=== PATIENT | female | born 2000 | race Caucasian/White ===

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

== ENCOUNTER 2020-03-01 03:10 | Outpatient (CLI) | payer SELFPAY ==
[2020-03-04 15:41] LABS: Patient Race White; SARS-CoV-2 RNA Undetected (Undetected); SARS-CoV-2 Specimen Source Nasal
== END 2020-03-01 03:30 ==
PROVIDERS: PCP Nurse Practitioner; Visit Provider Nurse Practitioner
DX: R05 Cough (principal); R68.83 Chills (without fever); J02.9 Acute pharyngitis, unspecified; Z20.828 Contact with and (suspected) exposure to other viral communicable diseases
CPT/HCPCS: U0003

== ENCOUNTER 2020-06-12 02:41 | Outpatient (CLI) | payer SELFPAY ==
[2020-06-13 12:27] LABS: COVID-19 RT-PCR UVMMC Result Negative (Negative)
== END 2020-06-12 02:42 | disposition home or self-care (01) ==
PROVIDERS: PCP Nurse Practitioner; Visit Provider Nurse Practitioner
DX: Z20.822 Contact with and (suspected) exposure to COVID-19 (principal)
CPT/HCPCS: U0003

== ENCOUNTER 2022-11-12 13:47 | Outpatient (REF) | payer BC, SELFPAY ==
--- NOTE | 2022-11-12 13:45 | PAPFT_PTH ---
PATIENT: Radha Ross LOC: [facility] U#:[id number] AGE/SX: 22/F ROOM: RE11/12/[address]: Arabella Amaya APRN : 2000 BED: DIS: 11/12/2022 SPEC #: [id number] RECD: 11/12/22 17:47 STATUS: TONNY RECrystal #: [id number] JOE: 11/12/22 13:[address]: Arabella Amaya DEPT: [facility] Cytology RECD BY: Jessica Andino Tissues: 1 - CX/ENDOCX FOR PAP SMEARS Procedures: PAP THIN PREP/UVM Screening Comments: [id number] (CHLAMYDIA/GC)
[2022-11-13 16:26] LABS: Chlamydia Result Negative (Negative); GC Result Negative (Negative)
== END 2022-11-12 13:48 | disposition home or self-care (01) ==
LOC: LBO 13:47
PROVIDERS: PCP Nurse Practitioner; Visit Provider Nurse Practitioner
DX: Z12.4 Encounter for screening for malignant neoplasm of cervix (principal); Z11.51 Encounter for screening for human papillomavirus (HPV)
CPT/HCPCS: 87491; 87591; 88142

== ENCOUNTER 2023-02-11 22:11 | Emergency (ER) | payer BC, SELFPAY ==
[2023-02-11 22:12] VITALS: BP 146/80; PULSE 98; RESP 18; TEMP 36.1; O2SAT 99
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
== END 2023-02-11 23:01 | disposition home or self-care (01) ==
PROVIDERS: Emergency Provider Emergency Medicine; PCP Nurse Practitioner
DX: T19.2XXA Foreign body in vulva and vagina, initial encounter (principal); Y92.019 Unspecified place in single-family (private) house as the place of occurrence of the external cause
CPT/HCPCS: 81025; 99283; 81003

== ENCOUNTER 2023-07-25 09:19 | Emergency (ER) | payer SELFPAY ==
--- NOTE | 2023-07-25 09:30 | DI.RAD_ITS ---
Exam(s) XR ELBOW LT COMPLETE EXAM: XR ELBOW LT COMPLETE CLINICAL HISTORY: arm pain. TECHNIQUE: 2D digital imaging was performed of the left elbow. Three images were obtained. AP, lat eral and oblique views were obtained. COMPARISON: No exams were available for comparison FINDINGS: BONES: No acute fracture is present. No bony destructive lesion is seen. JOINTS: The elbow is normally aligned. No joint effusion is seen. SOFT TISSUE: Normal. IMPRESSION: Unremarkable radiographs of the left elbow. DATA REPOSITORY: RADIATION DOSE DELIVERED:
--- NOTE | 2023-07-25 09:30 | DI.RAD_ITS ---
Exam(s) XR SHOULDER LT COMPLETE 2+V EXAM: XR SHOULDER LT COMPLETE 2+V CLINICAL HISTORY: arm pain. TECHNIQUE: 2D digital imaging was performed of the left shoulder. Five images were obtained. AP, G rashey, Y-view and axillary views were obtained. COMPARISON: No exams were available for comparison FINDINGS: BONES: No acute fracture is present. No bony destructive lesion is seen. JOINTS: No dislocation present. SOFT TISSUE: Normal. IMPRESSION: Unremarkable radiographs of the left shoulder. DATA REPOSITORY: RADIATION DOSE DELIVERED:
[2023-07-25 09:35] VITALS: BP 136/86; PULSE 89; RESP 16; TEMP 36.8; O2SAT 99
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
[2023-07-25 11:41] VITALS: BP 136/86; PULSE 72; RESP 16; TEMP 36.8; O2SAT 99
== END 2023-07-25 11:43 | disposition home or self-care (01) ==
PROVIDERS: Emergency Provider Registered Nurse Emergency; PCP Nurse Practitioner
DX: S53.402A Unspecified sprain of left elbow, initial encounter (principal); Y09 Assault by unspecified means
CPT/HCPCS: 81025; 99284; 73030; 73080

== ENCOUNTER 2024-07-03 22:17 | Emergency (ER) | payer SELFPAY ==
[2024-07-03 22:17] VITALS: BP 146/102; PULSE 104; RESP 18; TEMP 36.8; O2SAT 98
[2024-07-03 22:21] VITALS: RESP 18
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
== END 2024-07-03 22:34 ==
LOC: ER 22:34
PROVIDERS: Emergency Provider Emergency Medicine; PCP Nurse Practitioner
DX: F10.120 Alcohol abuse with intoxication, uncomplicated (principal); F32.A Depression, unspecified
CPT/HCPCS: 99283